=== PATIENT | female | born 1980 ===

== ENCOUNTER 2019-02-27 21:04 | Inpatient (IN) | payer SELFPAY ==
[2019-02-27] MEDS ORDERED: Sodium Chloride 0.9% 1,000 ML IV STA (21:18)
--- NOTE | 2019-02-27 21:46 | ED PDOC ---
HPI: Psych/Substance Abuse Time Seen by Provider: 02/27/19 21:16 Chief Complaint (Nursing): Psychiatric Evaluation Chief Complaint (Provider): Depression, OD History Per: Patient History/Exam Limitations: no limitations Onset/Duration Of Symptoms: Hrs Additional Complaint(s): 38 year old female brought by ambulance to ED for evaluation of depression x1 year and s/p overdose on ingestion of approximately of 10 tablets of Seroquel x1 hour [employer]. Patient cites ongoing divorce with for depression and states that Seroquel pills belong to [id number] who is schizophrenic. She denies any nausea, vomiting, fever, cough, SOB. Patient feels sleepy but is easily arousable and conversant. PMD: none provided Past Medical History Reviewed: Historical Data, Nursing Documentation, Vital Signs Vital Signs: Last Vital Signs Temp 98.4 F 02/27/19 21:08 Pulse 90 02/27/19 21:08 Resp 16 02/27/19 21:08 BP 146/70 02/27/19 21:08 Pulse Ox 100 02/27/19 21:08 Primary Care Provider: FAMILY PROVIDER,NO - Medical History PMH: No Chronic Diseases - Surgical History Surgical History: No Surg Hx - Family History Family History: States: Unknown Family Hx - Social History Current smoker - smoking cessation education provided: No Alcohol: None Drugs: Denies - Home Medications Home Medications: Ambulatory Orders Medication Instructions Recorded No Known Home Med 02/28/19 - Allergies Allergies/Adverse Reactions: Allergies Allergy/AdvReac Type Severity Reaction Status Date / Time No Known Allergies Allergy Verified 02/27/19 21:08 Review of Systems ROS Statement: Except As Marked, All Systems Reviewed And Found Negative Constitutional: Negative for: Fever Respiratory: Negative for: Cough, Shortness of Breath Gastrointestinal: Negative for: Nausea, Vomiting Psych: Positive for: Depression, Other (overdose of Seraquil ) Physical Exam - Reviewed Nursing Documentation Reviewed: Yes Vital Signs Reviewed: Yes - Physical Exam Appears: Positive for: No Acute Distress Head Exam: Positive for: ATRAUMATIC, NORMAL INSPECTION, NORMOCEPHALIC Skin: Positive for: Normal Color, Warm, DRY Eye Exam: Positive for: EOMI, Normal appearance, PERRL ENT: Positive for: Normal ENT Inspection Neck: Positive for: Normal, Painless ROM, Supple Cardiovascular/Chest: Positive for: Regular Rate, Rhythm. Negative for: Murmur Respiratory: Positive for: Normal Breath Sounds. Negative for: Respiratory Distress Gastrointestinal/Abdominal: Positive for: Normal Exam, Soft. Negative for: Tenderness Back: Positive for: Normal Inspection. Negative for: L CVA Tenderness, R CVA Tenderness, Vertebral Tenderness Extremity: Positive for: Normal ROM. Negative for: Pedal Edema, Deformity Neurological/Psych: Positive for: Awake, Alert, Oriented (x3). Negative for: Motor/Sensory Deficits - Laboratory Results Result Diagrams: 02/27/19 22:00 02/27/19 22:00 - ECG O2 Sat by Pulse Oximetry: 100 (RA) Pulse Ox Interpretation: Normal - Critical Care Total Time (In Min): 30 Medical Decision Making Medical Decision Making: Time: 2132 Initial Impression: 38 year old female with s/p Seraquil overdose Initial Plan: --Overdose Panel Labs --Poison Control consult --Crisis evaluation --1:1 Observation 22:10 Patient was evaluated by crisis. Patient has agreed to psychiatric admission 23:10 Labs reviewed shows no clinically significant abnormalities Case discussed with Ed at Poison Control who believes patient should be monitored for 4-6 hours for possible anticolinergic side effects. 02:30 Patient EKG repeated and shows no abnormalities; Chest Xray NAD Patient sleeping comfortably and is easily arousable; no distress Medically stable for psychiatric admission Scribe Attestation: Documented by José Antonio Garcia acting as a scribe for Dwain Nieves MD. Provider Scribe Attestation: All medical record entries made by the Scribe were at my direction and personally dictated by me. I have reviewed the chart and agree that the record accurately reflects my personal performance of the history, physical exam, medical decision making, and the department course for this patient. I have also personally directed, reviewed, and agree with the discharge instructions and disposition. Disposition - Clinical Impression Clinical Impression: Overdose, Depression - Disposition Disposition Time: 22:00 Condition: FAIR - Pt Status Changed To: Hospital Disposition Of: Inpatient - Admit Certification Admit to Inpatient:: After my assessment, the patient will require hospitalization for at least two midnights. This is because of the severity of symptoms shown, intensity of services needed, and/or the medical risk in this patient being treated as an outpatient.
[2019-02-27 22:29] LABS: PROTHROMBIN TIME 11.3 Seconds (9.8-13.1)
[2019-02-27 22:30] LABS: BASO # 0.1 K/uL (0.0-0.2); BASO % 0.8 % (0.0-2.0); EOS % 0.6 % (0.0-4.0); HEMOGLOBIN 13.8 g/dL (12.0-16.0); LYMPH # 1.8 K/uL (1.0-4.3); LYMPH % 28.6 % (20.0-40.0); MEAN CELL VOLUME 96.1 fl (81.0-99.0); MEAN CORPUSCULAR HGB CONC 34.3 g/dL (33.0-37.0); MEAN PLATELET VOLUME 10.9 fl (7.2-11.7); MONO # 0.5 K/uL (0.0-0.8); MONO % 8.2 % (0.0-10.0); NEUT # 3.8 K/uL (1.8-7.0); NEUT % 61.8 % (50.0-75.0); NRBC % 0.1 % (0.0-0.0); RBC 4.18 Mil/uL (3.80-5.20); RED CELL DISTRIBUTION WIDTH 12.5 % (11.5-14.5); SQUAMOUS EPITHIAL 7 /hpf (0-5); URINE BACTERIA OCC (<OCC); URINE BILIRUBIN NEGATIVE (NEGATIVE); URINE BLOOD NEGATIVE (NEGATIVE); URINE CLARITY SLIGHTY-CLOUDY (Clear); URINE COLOR STRAW (YELLOW); URINE GLUCOSE (UA) NEG (NEGATIVE); URINE LEUKOCYTE ESTERASE NEG Leu/uL (Negative); URINE PROTEIN NEGATIVE (NEGATIVE); URINE UROBILINOGEN 0.2-1.0 mg/dL (0.2-1.0); WHITE BLOOD COUNT 6.2 K/uL (4.8-10.8)
[2019-02-27 22:31] LABS: PARTIAL THROMBOPLASTIN TIME 37.8 Seconds (25.6-37.1)
[2019-02-27 22:38] LABS: ALB/GLOB RATIO 1.5 (1.0-2.1); ALBUMIN 4.6 g/dL (3.5-5.0); BLOOD UREA NITROGEN 12 mg/dl (7-17); CALCIUM 9.1 mg/dL (8.4-10.2); GFR NON-AFRICAN AMERICAN > 60
[2019-02-27 22:39] LABS: ACETAMINOPHEN < 10.0 ug/ml (10.0-30.0); SALICYLATE < 1.0 mg/dl
[2019-02-27 22:42] LABS: ALT/SGPT 19 U/L (9-52); AST/SGOT 28 U/L (14-36)
[2019-02-27 22:51] LABS: BARBITURATES, UR NEGATIVE (NEGATIVE); BENZODIAZEPINES, UR NEGATIVE (NEGATIVE); OPIATES, UR NEGATIVE (NEGATIVE); PHENCYCLIDINE, UR NEGATIVE (NEGATIVE)
[2019-02-28 02:42] VITALS: O2SAT 100
[2019-02-28] MEDS ORDERED: DiphenhydrAMINE 50 mg/ml Inj IM PRN (02:54)
[2019-02-28] MEDS ORDERED: Magnesium Hydroxide Susp 30 ml UD PO PRN (02:54)
[2019-02-28] MEDS ORDERED: Alum-Mag Hydrox-Simethicone Susp (30 mL) PO PRN (02:54)
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
--- NOTE | 2019-02-28 09:46 | RAD ---
Date of service: 02/27/2019 HISTORY: admit COMPARISON: No prior. TECHNIQUE: 1 view obtained. FINDINGS: LUNGS: No active pulmonary disease. PLEURA: No significant pleural effusion identified, no pneumothorax apparent. CARDIOVASCULAR: No aortic atherosclerotic calcification present. Normal cardiac size. No pulmonary vascular congestion. OSSEOUS STRUCTURES: No significant abnormalities. VISUALIZED UPPER ABDOMEN: Normal. OTHER FINDINGS: None. IMPRESSION: No acute cardiopulmonary disease appreciated.
--- NOTE | 2019-02-28 12:01 | CP.PCM.CON ---
History of Present Illness - History of Present Illness History of Present Illness: 38 yo female with history of depression took 10 tablets of Seroquel in attempt to commit suicide. Review of Systems - Review of Systems All systems: reviewed and no additional remarkable complaints except (aside from those mentioned above, 12 point system review were negative by me) Past Patient History - Tetanus Immunizations Tetanus Immunization: Unknown - Past Social History Smoking Status: Never Smoked Chewing Tobacco Use: No Cigar Use: No Alcohol: None Drugs: Denies - CARDIAC Hx Cardiac Disorders: No - PULMONARY Hx Respiratory Disorders: No Hx Tuberculosis: No - NEUROLOGICAL Hx Neurological Disorder: No HX Cerebrovascular Accident: No Hx Seizures: No - HEENT Hx HEENT Problems: No - RENAL Hx Chronic Kidney Disease: No - ENDOCRINE/METABOLIC Hx Endocrine Disorders: No - HEMATOLOGICAL/ONCOLOGICAL Hx Blood Disorders: No Hx Cancer: No Hx Human Immunodeficiency Virus (HIV): No - INTEGUMENTARY Hx Dermatological Problems: No - MUSCULOSKELETAL/RHEUMATOLOGICAL Hx Musculoskeletal Disorders: No - GASTROINTESTINAL Hx Gastrointestinal Disorders: No - GENITOURINARY/GYNECOLOGICAL Hx Genitourinary Disorders: No Hx Sexually Transmitted Disorders: No - PSYCHIATRIC Hx Substance Use: No - SURGICAL HISTORY Hx Surgeries: No - ANESTHESIA Hx Anesthesia: No Meds Allergies/Adverse Reactions: Allergies Allergy/AdvReac Type Severity Reaction Status Date / Time No Known Allergies Allergy Verified 02/27/19 21:08 - Medications Medications: Current Medications Acetaminophen (Tylenol 325mg Tab) 650 mg PO Q4 PRN PRN Reason: pain 4-7 Al Hydrox/Mg Hydrox/Simethicone (Maalox Plus 30 Ml) 30 ml PO Q4 PRN PRN Reason: Dyspepsia Diphenhydramine HCl (Benadryl) 50 mg IM Q6 PRN PRN Reason: Extrapyramidal S/S Unable PO Diphenhydramine HCl (Benadryl) 50 mg PO Q6 PRN PRN Reason: Extrapyramidal Symptoms Diphenhydramine HCl (Benadryl) 50 mg PO HS PRN PRN Reason: Sleep Haloperidol (Haldol) 5 mg PO Q4 PRN PRN Reason: Agitation Haloperidol Lactate (Haldol) 5 mg IM Q4 PRN PRN Reason: Agitation, Unable to Take PO Lorazepam (Ativan) 2 mg IM Q6 PRN PRN Reason: Anxiety/Agitation,Unable PO Lorazepam (Ativan) 1 mg PO Q8 PRN PRN Reason: Anxiety/Agitation Magnesium Hydroxide (Milk Of Magnesia) 30 ml PO HS PRN PRN Reason: Constipation Physical Exam - Constitutional Appears: No Acute Distress - Head Exam Head Exam: ATRAUMATIC - Eye Exam Eye Exam: absent: Scleral icterus - ENT Exam ENT Exam: Mucous Membranes Moist - Neck Exam Neck exam: Negative for: Meningismus - Respiratory Exam Respiratory Exam: absent: Rales, Rhonchi, Wheezes, Respiratory Distress - Cardiovascular Exam Cardiovascular Exam: REGULAR RHYTHM, +S1, +S2 - GI/Abdominal Exam GI & Abdominal Exam: Soft. absent: Tenderness - Rectal Exam Rectal Exam: Deferred - Extremities Exam Extremities exam: Negative for: pedal edema - Back Exam Back exam: NORMAL INSPECTION - Neurological Exam Neurological exam: Alert, Oriented x3 - Psychiatric Exam Psychiatric exam: Normal Affect - Skin Skin Exam: Dry, Intact Results - Vital Signs Recent Vital Signs: Last Vital Signs Temp 98.7 F 02/28/19 03:12 Pulse 69 02/28/19 03:41 Resp 18 02/28/19 03:41 BP 102/69 02/28/19 03:12 Pulse Ox 100 02/28/19 02:42 - Labs Result Diagrams: 02/27/19 22:00 02/27/19 22:00 Labs: Laboratory Results - last 24 hr 02/27/19 02/27/19 02/27/19 22:00 22:00 22:00 WBC 6.2 RBC 4.18 Hgb 13.8 Hct 40.2 MCV 96.1 MCH 33.0 H MCHC 34.3 RDW 12.5 Plt Count 185 MPV 10.9 Neut % (Auto) 61.8 Lymph % (Auto) 28.6 [place] % (Auto) 8.2 Eos % (Auto) 0.6 Baso % (Auto) 0.8 Neut # (Auto) 3.8 Lymph # (Auto) 1.8 [place] # (Auto) 0.5 Eos # (Auto) 0.0 Baso # (Auto) 0.1 PT INR APTT Sodium 138 Potassium 4.0 Chloride 105 Carbon Dioxide 22 Anion Gap 15 BUN 12 Creatinine 0.5 L Est GFR ( Amer) > 60 Est GFR (Non-Af Amer) > 60 POC Glucose (mg/dL) Random Glucose 107 H Calcium 9.1 Magnesium 1.9 Total Bilirubin 0.5 AST 28 ALT 19 Alkaline Phosphatase 45 Total Creatine Kinase 78 Total Protein 7.8 Albumin 4.6 Globulin 3.2 Albumin/Globulin Ratio 1.5 Urine Color Urine Clarity Urine pH Ur Specific [place] Urine Protein Urine Glucose (UA) Urine Ketones Urine Blood Urine Nitrate Urine Bilirubin Urine Urobilinogen Ur Leukocyte Esterase Urine RBC (Auto) Urine Microscopic WBC Ur Squamous Epith Cells Urine Bacteria Salicylates < 1.0 Urine Opiates Screen Urine Methadone Screen Acetaminophen < 10.0 L Ur Barbiturates Screen Ur Phencyclidine Scrn Ur Amphetamines Screen U Benzodiazepines Scrn U Oth Cocaine Metabols U Cannabinoids Screen Alcohol, Quantitative < 10 02/27/19 02/27/19 02/27/19 22:00 22:00 22:00 WBC RBC Hgb Hct MCV MCH MCHC RDW Plt Count MPV Neut % (Auto) Lymph % (Auto) [place] % (Auto) Eos % (Auto) Baso % (Auto) Neut # (Auto) Lymph # (Auto) [place] # (Auto) Eos # (Auto) Baso # (Auto) PT 11.3 INR 1.0 APTT 37.8 H Sodium Potassium Chloride Carbon Dioxide Anion Gap BUN Creatinine Est GFR ( Amer) Est GFR (Non-Af Amer) POC Glucose (mg/dL) Random Glucose Calcium Magnesium Total Bilirubin AST ALT Alkaline Phosphatase Total Creatine Kinase Total Protein Albumin Globulin Albumin/Globulin Ratio Urine Color Straw Urine Clarity Slighty-cloudy Urine pH 7.0 Ur Specific [place] 1.008 Urine Protein Negative Urine Glucose (UA) Neg Urine Ketones Negative Urine Blood Negative Urine Nitrate Negative Urine Bilirubin Negative Urine Urobilinogen 0.2-1.0 Ur Leukocyte Esterase Neg Urine RBC (Auto) 1 Urine Microscopic WBC < 1 Ur Squamous Epith Cells 7 H Urine Bacteria Occ H Salicylates Urine Opiates Screen Negative Urine Methadone Screen Negative Acetaminophen Ur Barbiturates Screen Negative Ur Phencyclidine Scrn Negative Ur Amphetamines Screen Negative U Benzodiazepines Scrn Negative U Oth Cocaine Metabols Negative U Cannabinoids Screen Negative Alcohol, Quantitative 02/27/19 22:22 WBC RBC Hgb Hct MCV MCH MCHC RDW Plt Count MPV Neut % (Auto) Lymph % (Auto) [place] % (Auto) Eos % (Auto) Baso % (Auto) Neut # (Auto) Lymph # (Auto) [place] # (Auto) Eos # (Auto) Baso # (Auto) PT INR APTT Sodium Potassium Chloride Carbon Dioxide Anion Gap BUN Creatinine Est GFR ( Amer) Est GFR (Non-Af Amer) POC Glucose (mg/dL) 109 Random Glucose Calcium Magnesium Total Bilirubin AST ALT Alkaline Phosphatase Total Creatine Kinase Total Protein Albumin Globulin Albumin/Globulin Ratio Urine Color Urine Clarity Urine pH Ur Specific [place] Urine Protein Urine Glucose (UA) Urine Ketones Urine Blood Urine Nitrate Urine Bilirubin Urine Urobilinogen Ur Leukocyte Esterase Urine RBC (Auto) Urine Microscopic WBC Ur Squamous Epith Cells Urine Bacteria Salicylates Urine Opiates Screen Urine Methadone Screen Acetaminophen Ur Barbiturates Screen Ur Phencyclidine Scrn Ur Amphetamines Screen U Benzodiazepines Scrn U Oth Cocaine Metabols U Cannabinoids Screen Alcohol, Quantitative Assessment & Plan (1) Suicidal intent Status: Acute Comment: psyche is managing
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
--- NOTE | 2019-02-28 12:38 | CARD ---
APPROVED REPORT Date of service: 02/27/2019 EKG Measurement Heart [id number] <Conclusion> Normal sinus rhythm Cannot rule out small or absent R waves V1-V3, may be due to lead placement or possible septal infarct age undetermined. Abnormal ECG
[2019-02-28 18:16] VITALS: RESP 18; TEMP 97.7
[2019-03-01 09:05] VITALS: BP 124/81; PULSE 87
--- NOTE | 2019-03-01 13:34 | PCM.PSYCH ---
Initial Psychiatric Evaluation - Initial Psychiatric Evaluation Type of Admission: Voluntary Chief Complaint (in patient's own words): pt reports that came to hospital after "accidently taking medication for sleep", denies this as being an attempt to harmself "I just wanted to sleep because my wants a divorce I have been having trouble sleeping". denies ill will towards . reports lives with her and pt's sister in law , reports will go back to stay with said relatives. pt admits that she will follow up with her pmd in community dr. [place]ultana [place]. 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 report sleep last night restful sleep, appetite is good. staff report pt has been seen about unit. today pt was seen initially in dining room interacting with peers. pt was screened by [facility] screeners found not to meet screening criteria. pt is verbally agreeable to sign out ama. Patient's Reaction to Hospitalization: pt initally signed in voluntarily later submitted 48 hour notice, screened by [facility], deemed not to meet criteria, signed out ama History of Present Illness and Precipitating Events: pt was admitted through [facility], reportedl took approx 10 tablets of another person's medication to "try to fall asleep". Current Medications: Active Medications Generic Name Dose Route Start Last Admin Trade Name Freq PRN Reason Stop Dose Admin Acetaminophen 650 mg 02/28/19 02:54 Tylenol 325mg Tab PO Q4 PRN pain 4-7 Al Hydrox/Mg Hydrox/Simethicone 30 ml 02/28/19 02:54 Maalox Plus 30 Ml PO Q4 PRN Dyspepsia Diphenhydramine HCl 50 mg 02/28/19 02:54 Benadryl IM Q6 PRN Extrapyramidal S/S Unable PO Diphenhydramine HCl 50 mg 02/28/19 02:54 Benadryl PO Q6 PRN Extrapyramidal Symptoms Diphenhydramine HCl 50 mg 02/28/19 02:54 Benadryl PO HS PRN Sleep Escitalopram Oxalate 10 mg 03/01/19 09:00 03/01/19 10:22 Lexapro PO 10 mg DAILY MODESTA Administration Haloperidol 5 mg 02/28/19 02:54 Haldol PO Q4 PRN Agitation Haloperidol Lactate 5 mg 02/28/19 02:54 Haldol IM Q4 PRN Agitation, Unable to Take PO Lorazepam 2 mg 02/28/19 02:54 Ativan IM Q6 PRN Anxiety/Agitation,Unable PO Lorazepam 1 mg 02/28/19 02:54 Ativan PO Q8 PRN Anxiety/Agitation Magnesium Hydroxide 30 ml 02/28/19 02:54 Milk Of Magnesia PO HS PRN Constipation Trazodone HCl 50 mg 02/28/19 22:00 02/28/19 21:07 Desyrel PO 50 mg HS MODESTA Administration Past Psychiatric History - Past Psychiatric History Explanation of prior treatment: no hx of previous psychiatric treatment Pertinent Medical Hx (Current Medical&Sleep Prob, Allergies): Allergies Allergy/AdvReac Type Severity Reaction Status Date / Time No Known Allergies Allergy Verified 02/27/19 21:08 No Known Home Med 02/28/19 Mental Status Examination - Personal Presentation Personal Presentation: Looks stated age - Affect Affect: Broad - Motor Activity Motor Activity: Calm - Reliability in Providing Information Reliability in Providing Information: Good - Speech Speech: Organized - Formal Thought Process Formal Thought Process: No Impairment - Obsessions/Compulsions Obsessions: No Compulsions: No - Cognitive Functions Orientation: Person, Place - Strength & Assets Inventory Strength & Assets Inventory: Intelligence (in reported attempt to go to sleep to rest vs trying to take life took another rx) DSM 5 DX - Recommended/Plan of Treatment Treatment Recommendations and Plan of Treatment: discharge per attending physician pt to sign out ama-does not want to stay, screened deemed not to meet criteria for involuntary commitment, was explained possible outcome of ama: increased s/s, possible suicidal ideation/attempt, pt was offered to stay-adjust rx, further milieu, pt deferred. pt had only received several doses ssri will not rx pt requests to follow up pmd in community dr sultana dewitt [facility] information given [facility] [phone] [facility] case discussed with primary md (psychiatry)
--- NOTE | 2019-03-01 13:43 | PCM.PYCHDC ---
Mental Status Examination - Mental Status Examination Orientation: Person, Place, Situation, Time Memory: Intact Mood: Neutral Affect: Broad Speech: Appropriate Attention: WNL Concentration: WNL Association: WNL Fund of Knowledge: WNL Formal Thought Process: No Impairment Description of patient's judgement and insight: improved Psychotic Thoughts and Behaviors: denied Suicidal Ideation: No Current Homicidal Ideation?: No Plan: admits remorse misunderstanding related to the reported taking of medication to sleep not trying to harm self Discharge Summary - Discharge Note Reason for Hospitalization: pt initally signed in voluntarily later submitted 48 hour notice, screened by [facility], deemed not to meet criteria, signed out ama Psychiatric History (includes Medical, Family, Personal Hx): denies previous psychiatric treatment Laboratory Data: Abnormal Lab Results 03/01/19 07:40 Triglycerides 43 Cholesterol 160 LDL Cholesterol Direct 63 HDL Cholesterol 76 H Thyroxine (T4) 8.66 TSH 3rd Generation 0.73 Consultations:: List each consultation separately and include: 1. Reason for request. 2. Findings. 3. Follow-up Consultations: pt was evaluated by hospitalist Summary of Hospital Course include:: 1. Description of specific treatment plan utilized for patients during their course of treatmen. 2. Summarize the time- course for resolution of acute symptoms and/or regressed behaviors. 3. Describe issues identified and worked on during hospitalization. 4. Describe medication utilized. 5. Describe medical problems identified and treated. 6. Reassessment of suicide risk Summary of Hospital Course: pt was admitted through [facility], reportedl took approx 10 tablets of another person's medication to "try to fall asleep". - Diagnosis (1) Hx of suicide attempt Current Visit: Yes Status: Chronic Priority: Medium (2) Depression Assessment and Plan: pt defers need for psychiatric treatment reports will follow up with pmd in community numbers given to [facility] Current Visit: Yes Status: Chronic Priority: Medium (3) Overdose Assessment and Plan: pt reports was accidental to sleep not reportedly to take life review possible s/s worsening depression pt signed out ama did not meet criteria per [facility] for involuntary commitment Current Visit: Yes Status: Acute Priority: Medium - Final Diagnosis (DSM 5) Condition upon Discharge: FAIR Disposition: HOME/ ROUTINE Follow-up Treatment Plan: discharge per attending physician pt to sign out ama-does not want to stay, screened deemed not to meet criteria for involuntary commitment, was explained possible outcome of ama: increased s/s, possible suicidal ideation/attempt, pt was offered to stay-adjust rx, further milieu, pt deferred. pt had only received several doses ssri will not rx pt requests to follow up pmd in community dr sultana dewitt [facility] information given related to [id number] [facility], [facility] case discussed with primary md (psychiatry) - Justification for 2 or more meds Failed 3 or more trials of Monotherapy: List medications: no applicable
== END 2019-03-01 15:17 | disposition left against medical advice (07) | DRG 881 ==
LOC: H.ER 21:04 → H.ERHOLD 23:17 → H.PSYCH 02-28 02:52
PROVIDERS: ADMIT Psychiatry & Neurology Psychiatry; ATTEND Psychiatry & Neurology Psychiatry
DX: F32.9 Major depressive disorder, single episode, unspecified (principal); T43.591A Poisoning by other antipsychotics and neuroleptics, accidental (unintentional), initial encounter; Y92.9 Unspecified place or not applicable; Z91.5 Personal history of self-harm